=== PATIENT | male | born 1940 | race Caucasian/White ===

== ENCOUNTER 2022-10-01 15:37 | Inpatient (IN) | payer OTHER ==
[~2022-10-01] VITALS: Ht 177.8 cm; Wt 66.2 kg
[2022-10-01 15:43] VITALS: BP_SYST 135
[2022-10-01 16:44] LABS: BASOPHILS % (AUTO) 0.3 % (0.0-2.0); EOSINOPHILS # (AUTO) 0.1 K/uL (0.0-0.4); EOSINOPHILS % (AUTO) 1.2 % (0.0-4.0); HEMATOCRIT 34.3 % (36-54); HEMOGLOBIN 11.4 g/dL (14.0-18.0); LYMPHOCYTES # (AUTO) 1.4 K/uL (1.0-5.5); LYMPHOCYTES % (AUTO) 19.2 % (20.5-51.5); MEAN CORPUSCULAR HEMOGLOBIN 33 pg (27-31); MEAN CORPUSCULAR HGB CONC 33 % (32-36); MEAN CORPUSCULAR VOLUME 100 fL (79.0-98.0); MONOCYTES # (AUTO) 0.8 K/uL (0.0-1.0); MONOCYTES % (AUTO) 11.5 % (1.7-9.3); NEUTROPHILS # (AUTO) 4.8 K/uL (1.8-7.7); NEUTROPHILS % (AUTO) 67.8 % (40.0-70.0); PLATELET COUNT (AUTO) 165 K/uL (130-430); RED BLOOD CELL COUNT(AUTO) 3.43 MIL/uL (4.2-6.2)
[2022-10-01 17:07] LABS: ANION GAP 5 (5-15); CALCIUM 9.2 mg/dL (8.4-11.0); CHLORIDE 97 mmol/L (98-107); GLUCOSE 100 mg/dL (70-99); UREA NITROGEN, BLOOD 18 mg/dL (8-21)
[2022-10-01 17:12] LABS: ALANINE AMINOTRANSFERASE 25 U/L (12-78); ALBUMIN 3.1 g/dL (3.4-4.8); ASPARTATE AMINOTRANSFERASE 30 U/L (10-37); TOTAL BILIRUBIN 0.7 mg/dL (0.0-1.0)
[2022-10-01] MEDS ORDERED: HYDROcodone/ACETAMIN 5-325 MG TAB (NORCO/ VICODIN) PO ONE (17:15)
[2022-10-01 17:32] LABS: BILIRUBIN,URINE NEGATIVE (NEGATIVE); BLOOD, URINE 2+ (NEGATIVE); CLARITY/URINE CLEAR (CLEAR); COLOR,URINE YELLOW (YELLOW); GLUCOSE,URINE NEGATIVE (NEGATIVE); KETONES,URINE NEGATIVE (NEGATIVE); LEUKOCYTE ESTERASE ,URINE TRACE (NEGATIVE); NITRITE, URINE NEGATIVE (NEGATIVE); PH,URINE 6.5 (5.0-8.0); PROTEIN URINE NEGATIVE (NEGATIVE); UROBILINOGEN,URINE 0.2 (0.2-1.0)
[2022-10-01 17:44] LABS: BACTERIA,URINE None Seen /HPF (None Seen); MUCUS,URINE None Seen /LPF (None Seen); RBC,URINE 20-50 /HPF (0-3)
[2022-10-01 17:45] LABS: HYALINE CASTS, URINE 0-10 /LPF (None Seen)
[2022-10-01] MEDS ORDERED: NS 500 ML IV ONE (18:15)
[2022-10-01] MEDS ORDERED: BACITRACIN 1 GM OINT TP ONE (18:17)
[2022-10-01] MEDS ORDERED: SULF1TAB48 PO ×2 (18:23)
[2022-10-01] MEDS ORDERED: DOCU-144 PO ×2 (18:23)
[2022-10-01] MEDS ORDERED: POLY119P2 PO ×2 (18:23)
[2022-10-01] MEDS ORDERED: SULFAMETHOXAZOLE/TRIMETHOPR DS 1 TABLET PO ONE (18:30)
[2022-10-01] MEDS ORDERED: iohexoL 350 mgI/mL, 100 ML INFUS..BTL IV ONE (19:00)
[2022-10-01 20:24] LABS: INR 1.4 (0.80-1.20); PROTHROMBIN TIME 14.3 SECS (9.5-12.5)
[2022-10-01] MEDS: ENOXAPARIN SODIUM 60 MG/0.6 ML SYRINGE SUBCUT SCH (21:42)
[2022-10-01 22:30] VITALS: BP_SYST 126
[2022-10-01] MEDS ORDERED: NALOXONE HCL 0.4 MG/ML AMP (NARCAN) IVP PRN (23:45)
[2022-10-01] MEDS ORDERED: BISACODYL 5 MG TABLET.DR (DULCOLAX) PO ONE (23:45)
[2022-10-01 23:55] VITALS: BP_SYST 133
[2022-10-01] MEDS: HYDROcodone/ACETAMIN 10-325 MG TAB PO PRN (23:57)
[2022-10-02] MEDS ORDERED: HYDR-3917 PO (01:18)
[2022-10-02] MEDS ORDERED: ASPI-1457 PO (01:18)
[2022-10-02] MEDS ORDERED: ONDA-8 TL (01:18)
[2022-10-02] MEDS ORDERED: PRO40 PO (01:18)
[2022-10-02] MEDS ORDERED: PHE25 PO (01:18)
[2022-10-02] MEDS ORDERED: NADO40TA2 PO (01:18)
[2022-10-02 02:00] VITALS: BP_SYST 126
[2022-10-02 08:00] VITALS: BP_SYST 124
[2022-10-02] MEDS ORDERED: MUPIROCIN 2% TOPICAL OINTMENT 22 GM NS PRN (09:45)
[2022-10-02] MEDS ORDERED: POTASSIUM CHLORIDE 20 MEQ TAB.PRT.SR PO PRN (09:45)
[2022-10-02] MEDS ORDERED: DOCUSATE SODIUM 100 MG CAPSULE PO PRN (09:45)
[2022-10-02] MEDS ORDERED: ONDANSETRON HCL 4 MG/2 ML VIAL IVP PRN (09:45)
[2022-10-02] MEDS ORDERED: ZOLPIDEM TARTRATE 5 MG TABLET PO PRN (09:45)
[2022-10-02] MEDS ORDERED: LORazepam 2 MG/ML VIAL IVP PRN (09:45)
[2022-10-02] MEDS: ENOXAPARIN SODIUM 60 MG/0.6 ML SYRINGE SUBCUT SCH ×2 (09:51→22:09)
[2022-10-02] MEDS: HYDROcodone/ACETAMIN 10-325 MG TAB PO PRN ×2 (09:52→17:26)
[2022-10-02] MEDS ORDERED: PIPERACILLIN/TAZO 3.375/DEX-IS 50 ML IV ONE (10:15)
[2022-10-02] MEDS: PIPERACILLIN/TAZO 3.375/DEX-IS 50 ML IV SCH ×3 (11:41→23:59)
[2022-10-02 12:10] VITALS: BP_SYST 113
[2022-10-02 16:10] VITALS: BP_SYST 107
[2022-10-02] MEDS ORDERED: SODIUM PHOSPHATE,MONO-DIBASIC 133 ML ENEMA RC ONE (18:00)
[2022-10-02 20:00] VITALS: BP_SYST 114
[2022-10-02] MEDS: PANTOPRAZOLE SODIUM 40 MG TAB PO SCH (22:09)
[2022-10-03] VITALS (13 sets, daily range): BP systolic 72–129
[2022-10-03] MEDS: ACETAMINOPHEN 325 MG TABLET PO PRN (00:05)
[2022-10-03] MEDS: PIPERACILLIN/TAZO 3.375/DEX-IS 50 ML IV SCH ×3 (05:28→18:23)
[2022-10-03 08:00] LABS: ANION GAP 11 (5-15); CALCIUM 8.6 mg/dL (8.4-11.0); CHLORIDE 96 mmol/L (98-107); CREATININE 1.14 mg/dL (0.55-1.30); GLUCOSE 83 mg/dL (70-99); UREA NITROGEN, BLOOD 18 mg/dL (8-21)
[2022-10-03 08:11] LABS: HEMATOCRIT 31.7 % (36-54); HEMOGLOBIN 10.7 g/dL (14.0-18.0); MEAN CORPUSCULAR HEMOGLOBIN 34 pg (27-31); MEAN CORPUSCULAR HGB CONC 34 % (32-36); MEAN CORPUSCULAR VOLUME 100 fL (79.0-98.0); PLATELET COUNT (AUTO) 151 K/uL (130-430); RED BLOOD CELL COUNT(AUTO) 3.17 MIL/uL (4.2-6.2); RED CELL DISTRIBUTION WIDTH 18.4 % (9.0-15.0)
[2022-10-03 08:39] LABS: WHITE BLOOD COUNT (AUTO) 20.2 K/uL (4.8-10.8)
[2022-10-03] MEDS: ENOXAPARIN SODIUM 60 MG/0.6 ML SYRINGE SUBCUT SCH (08:54)
[2022-10-03] MEDS: PANTOPRAZOLE SODIUM 40 MG TAB PO SCH ×3 (08:54→22:09)
[2022-10-03] MEDS ORDERED: ASPIRIN 81 MG TABLET(ECOTRIN) PO SCH (09:00)
[2022-10-03] MEDS ORDERED: ERYEYE LEFT EYE (12:50)
[2022-10-03 13:13] LABS: ATYPICAL LYMPHOCYTES % 0 % (0-0); BAND % (MANUAL) 16 % (0-6); BASOPHILS % (MANUAL) 0 % (0-2); EOSINOPHILS % (MANUAL) 0 % (0-7); LYMPHOCYTES % (MANUAL) 5 % (20-46); MONOCYTES % (MANUAL) 6 % (0-11)
[2022-10-03] MEDS ORDERED: PROMETHAZINE HCL 25 MG TABLET PO PRN (13:15)
[2022-10-03 14:16] LABS: BASOPHILS % (AUTO) 0.1 % (0.0-2.0); HEMATOCRIT 25.8 % (36-54); HEMOGLOBIN 8.6 g/dL (14.0-18.0); LYMPHOCYTES # (AUTO) 1.2 K/uL (1.0-5.5); LYMPHOCYTES % (AUTO) 7.2 % (20.5-51.5); MEAN CORPUSCULAR HEMOGLOBIN 33 pg (27-31); MEAN CORPUSCULAR HGB CONC 33 % (32-36); MEAN CORPUSCULAR VOLUME 100 fL (79.0-98.0); MONOCYTES # (AUTO) 1.3 K/uL (0.0-1.0); MONOCYTES % (AUTO) 8.2 % (1.7-9.3); NEUTROPHILS # (AUTO) 13.8 K/uL (1.8-7.7); NEUTROPHILS % (AUTO) 84.5 % (40.0-70.0); PLATELET COUNT (AUTO) 125 K/uL (130-430); RED BLOOD CELL COUNT(AUTO) 2.59 MIL/uL (4.2-6.2); RED CELL DISTRIBUTION WIDTH 18.2 % (9.0-15.0); WHITE BLOOD COUNT (AUTO) 16.3 K/uL (4.8-10.8)
[2022-10-03] MEDS ORDERED: OCTREOTIDE ACETATE 500 MCG in NS 99.5 ML IV SCH (18:15)
[2022-10-03] MEDS: NACL 0.9% 1,000 ML IV SCH (18:23)
[2022-10-03] MEDS: ERYTHROMYCIN BASE 0.5% EYE OINT...G. LEFT EYE SCH ×3 (18:27→22:09)
[2022-10-03 18:49] LABS: INR 1.8 (0.80-1.20)
[2022-10-03] MEDS: IPRATROPIUM/ALBUTEROL SULFATE 3 ML AMPUL.NEB (DUONEB) INH PRN (21:12)
[2022-10-04] VITALS (24 sets, daily range): BP systolic 75–139
[2022-10-04] MEDS: PIPERACILLIN/TAZO 3.375/DEX-IS 50 ML IV SCH ×5 (00:31→23:39)
[2022-10-04] MEDS ORDERED: NOREPINEPHRINE 4 MG/4 ML VIAL IV ONE (00:41)
[2022-10-04] MEDS ORDERED: NOREPINEPHRINE BITARTRATE 4 MG in D5W 246 ML IV PRN (00:45)
[2022-10-04] MEDS ORDERED: NACL 0.9% 1,000 ML IV ONE (00:45)
[2022-10-04] MEDS: NACL 0.9% 1,000 ML IV SCH ×3 (05:41→20:16)
[2022-10-04 07:59] LABS: ANION GAP 10 (5-15); CALCIUM 8.1 mg/dL (8.4-11.0); CHLORIDE 102 mmol/L (98-107); CREATININE 0.96 mg/dL (0.55-1.30); GLUCOSE 117 mg/dL (70-99); UREA NITROGEN, BLOOD 22 mg/dL (8-21)
[2022-10-04] MEDS: PANTOPRAZOLE SODIUM 40 MG/VIAL (PROTONIX) IVP SCH ×2 (08:07→21:25)
[2022-10-04] MEDS: ERYTHROMYCIN BASE 0.5% EYE OINT...G. LEFT EYE SCH ×2 (08:08→21:25)
[2022-10-04 08:13] LABS: EOSINOPHILS % (AUTO) 0.1 % (0.0-4.0); HEMATOCRIT 26.1 % (36-54); HEMOGLOBIN 8.7 g/dL (14.0-18.0); LYMPHOCYTES % (AUTO) 8.1 % (20.5-51.5); MEAN CORPUSCULAR HEMOGLOBIN 32 pg (27-31); MEAN CORPUSCULAR HGB CONC 34 % (32-36); MEAN CORPUSCULAR VOLUME 97 fL (79.0-98.0); MONOCYTES # (AUTO) 1.3 K/uL (0.0-1.0); NEUTROPHILS # (AUTO) 10.4 K/uL (1.8-7.7); NEUTROPHILS % (AUTO) 81.8 % (40.0-70.0); PLATELET COUNT (AUTO) 120 K/uL (130-430); RED BLOOD CELL COUNT(AUTO) 2.69 MIL/uL (4.2-6.2); RED CELL DISTRIBUTION WIDTH 18.3 % (9.0-15.0); WHITE BLOOD COUNT (AUTO) 12.7 K/uL (4.8-10.8)
[2022-10-04] MEDS ORDERED: iohexoL 350 mgI/mL, 100 ML INFUS..BTL IV ONE (08:21)
[2022-10-04] MEDS ORDERED: OCTREOTIDE ACETATE 1,250 MCG in NS 243.75 ML IV SCH (13:00)
[2022-10-04] MEDS ORDERED: BISACODYL 5 MG TABLET.DR (DULCOLAX) PO ONE (17:00)
[2022-10-04 17:30] LABS: BASOPHILS # (AUTO) 0.1 K/uL (0.0-0.2); BASOPHILS % (AUTO) 0.3 % (0.0-2.0); HEMATOCRIT 26.6 % (36-54); HEMOGLOBIN 8.6 g/dL (14.0-18.0); LYMPHOCYTES # (AUTO) 1.1 K/uL (1.0-5.5); LYMPHOCYTES % (AUTO) 4.5 % (20.5-51.5); MEAN CORPUSCULAR HEMOGLOBIN 32 pg (27-31); MEAN CORPUSCULAR HGB CONC 33 % (32-36); MEAN CORPUSCULAR VOLUME 98 fL (79.0-98.0); MONOCYTES # (AUTO) 1.9 K/uL (0.0-1.0); MONOCYTES % (AUTO) 7.9 % (1.7-9.3); NEUTROPHILS % (AUTO) 87.3 % (40.0-70.0); PLATELET COUNT (AUTO) 137 K/uL (130-430); RED BLOOD CELL COUNT(AUTO) 2.71 MIL/uL (4.2-6.2); RED CELL DISTRIBUTION WIDTH 19.4 % (9.0-15.0); WHITE BLOOD COUNT (AUTO) 24.1 K/uL (4.8-10.8)
[2022-10-04] MEDS ORDERED: GOLYTELY / COLYTE SOLUTION 4 LITERS PO ONE (18:00)
[2022-10-04] MEDS: HEPARIN SODIUM,PORCINE 5,000 UNITS/ML VIAL SUBCUT SCH (21:28)
[2022-10-04] MEDS: HYDROcodone/ACETAMIN 5-325 MG TAB (NORCO/ VICODIN) PO PRN (23:40)
[2022-10-05] VITALS (18 sets, daily range): BP systolic 89–145
[2022-10-05] MEDS: PIPERACILLIN/TAZO 3.375/DEX-IS 50 ML IV SCH ×3 (05:50→18:42)
[2022-10-05 07:21] LABS: ANION GAP 14 (5-15); CALCIUM 7.5 mg/dL (8.4-11.0); CHLORIDE 107 mmol/L (98-107); CREATININE 0.92 mg/dL (0.55-1.30); GLUCOSE 109 mg/dL (70-99); UREA NITROGEN, BLOOD 24 mg/dL (8-21)
[2022-10-05 07:36] LABS: BASOPHILS % (AUTO) 0.2 % (0.0-2.0); EOSINOPHILS % (AUTO) 0.2 % (0.0-4.0); HEMATOCRIT 22.4 % (36-54); HEMOGLOBIN 7.4 g/dL (14.0-18.0); LYMPHOCYTES # (AUTO) 1.4 K/uL (1.0-5.5); LYMPHOCYTES % (AUTO) 9.3 % (20.5-51.5); MEAN CORPUSCULAR HEMOGLOBIN 33 pg (27-31); MEAN CORPUSCULAR HGB CONC 33 % (32-36); MEAN CORPUSCULAR VOLUME 98 fL (79.0-98.0); MONOCYTES # (AUTO) 1.6 K/uL (0.0-1.0); MONOCYTES % (AUTO) 10.8 % (1.7-9.3); PLATELET COUNT (AUTO) 150 K/uL (130-430); RED BLOOD CELL COUNT(AUTO) 2.28 MIL/uL (4.2-6.2); RED CELL DISTRIBUTION WIDTH 18.7 % (9.0-15.0); WHITE BLOOD COUNT (AUTO) 15.1 K/uL (4.8-10.8)
[2022-10-05 08:28] LABS: NEUTROPHILS % (AUTO) 79.5 % (40.0-70.0)
[2022-10-05] MEDS: ERYTHROMYCIN BASE 0.5% EYE OINT...G. LEFT EYE SCH ×2 (08:32→21:35)
[2022-10-05] MEDS: PANTOPRAZOLE SODIUM 40 MG/VIAL (PROTONIX) IVP SCH ×2 (08:33→21:35)
[2022-10-05] MEDS: NACL 0.9% 1,000 ML IV SCH ×2 (08:34→18:42)
[2022-10-05] MEDS: HEPARIN SODIUM,PORCINE 5,000 UNITS/ML VIAL SUBCUT SCH ×2 (09:00→21:00)
[2022-10-05] MEDS: HYDROcodone/ACETAMIN 5-325 MG TAB (NORCO/ VICODIN) PO PRN (12:10)
[2022-10-05] MEDS: MICAFUNGIN SODIUM 50 MG in NS 50 ML IV SCH (14:37)
[2022-10-05 16:12] LABS: BASOPHILS % (AUTO) 0.1 % (0.0-2.0); EOSINOPHILS # (AUTO) 0.1 K/uL (0.0-0.4); RED CELL DISTRIBUTION WIDTH 19.4 % (9.0-15.0)
[2022-10-05 16:21] LABS: EOSINOPHILS % (AUTO) 0.7 % (0.0-4.0); LYMPHOCYTES # (AUTO) 1.3 K/uL (1.0-5.5); LYMPHOCYTES % (AUTO) 9.4 % (20.5-51.5); MEAN CORPUSCULAR HEMOGLOBIN 32 pg (27-31); MEAN CORPUSCULAR HGB CONC 33 % (32-36); MEAN CORPUSCULAR VOLUME 98 fL (79.0-98.0); MONOCYTES # (AUTO) 1.3 K/uL (0.0-1.0); MONOCYTES % (AUTO) 9.4 % (1.7-9.3); NEUTROPHILS # (AUTO) 11.2 K/uL (1.8-7.7); NEUTROPHILS % (AUTO) 80.4 % (40.0-70.0); PLATELET COUNT (AUTO) 174 K/uL (130-430); RED BLOOD CELL COUNT(AUTO) 2.15 MIL/uL (4.2-6.2); WHITE BLOOD COUNT (AUTO) 13.9 K/uL (4.8-10.8)
[2022-10-05 16:33] LABS: HEMOGLOBIN 6.9 g/dL (14.0-18.0)
[2022-10-06] VITALS (24 sets, daily range): BP systolic 109–171
[2022-10-06] MEDS: PIPERACILLIN/TAZO 3.375/DEX-IS 50 ML IV SCH ×5 (01:01→23:56)
[2022-10-06] MEDS: NACL 0.9% 1,000 ML IV SCH (06:05)
[2022-10-06 06:49] LABS: INR 1.4 (0.80-1.20)
[2022-10-06 06:56] LABS: BASOPHILS % (AUTO) 0.1 % (0.0-2.0); EOSINOPHILS # (AUTO) 0.1 K/uL (0.0-0.4); HEMATOCRIT 31.3 % (36-54); HEMOGLOBIN 10.5 g/dL (14.0-18.0); LYMPHOCYTES % (AUTO) 7.9 % (20.5-51.5); MEAN CORPUSCULAR HEMOGLOBIN 32 pg (27-31); MEAN CORPUSCULAR HGB CONC 34 % (32-36); MEAN CORPUSCULAR VOLUME 96 fL (79.0-98.0); MONOCYTES # (AUTO) 1.2 K/uL (0.0-1.0); MONOCYTES % (AUTO) 9.6 % (1.7-9.3); NEUTROPHILS # (AUTO) 10.5 K/uL (1.8-7.7); NEUTROPHILS % (AUTO) 81.4 % (40.0-70.0); PLATELET COUNT (AUTO) 186 K/uL (130-430); RED BLOOD CELL COUNT(AUTO) 3.25 MIL/uL (4.2-6.2); RED CELL DISTRIBUTION WIDTH 16.3 % (9.0-15.0); WHITE BLOOD COUNT (AUTO) 12.9 K/uL (4.8-10.8)
[2022-10-06 07:15] LABS: ALANINE AMINOTRANSFERASE 22 U/L (12-78); ALBUMIN 2.1 g/dL (3.4-4.8); ANION GAP 8 (5-15); ASPARTATE AMINOTRANSFERASE 46 U/L (10-37); CALCIUM 8.3 mg/dL (8.4-11.0); CHLORIDE 109 mmol/L (98-107); CREATININE 0.83 mg/dL (0.55-1.30); GLUCOSE 92 mg/dL (70-99); UREA NITROGEN, BLOOD 22 mg/dL (8-21)
[2022-10-06] MEDS: PANTOPRAZOLE SODIUM 40 MG/VIAL (PROTONIX) IVP SCH ×2 (09:51→20:17)
[2022-10-06] MEDS: HEPARIN SODIUM,PORCINE 5,000 UNITS/ML VIAL SUBCUT SCH ×2 (09:51→20:19)
[2022-10-06] MEDS: ERYTHROMYCIN BASE 0.5% EYE OINT...G. LEFT EYE SCH ×2 (09:51→20:17)
[2022-10-06] MEDS ORDERED: KETOROLAC TROMETHAMINE 30 MG VIAL IVP PRN (11:15)
[2022-10-06] MEDS: D5NS 1,000 ML IV SCH ×2 (12:21→23:56)
[2022-10-06] MEDS: HYDROcodone/ACETAMIN 5-325 MG TAB (NORCO/ VICODIN) PO PRN ×2 (14:34→17:21)
[2022-10-06] MEDS: MICAFUNGIN SODIUM 50 MG in NS 50 ML IV SCH (15:16)
[2022-10-06 15:25] LABS: HEMATOCRIT 33.1 % (36-54); MEAN CORPUSCULAR HEMOGLOBIN 32 pg (27-31); MEAN CORPUSCULAR HGB CONC 33 % (32-36); MEAN CORPUSCULAR VOLUME 97 fL (79.0-98.0); PLATELET COUNT (AUTO) 214 K/uL (130-430); RED BLOOD CELL COUNT(AUTO) 3.43 MIL/uL (4.2-6.2); RED CELL DISTRIBUTION WIDTH 16.1 % (9.0-15.0); WHITE BLOOD COUNT (AUTO) 11.5 K/uL (4.8-10.8)
[2022-10-06 16:09] LABS: BAND % (MANUAL) 1 % (0-6); BASOPHILS % (MANUAL) 0 % (0-2); EOSINOPHILS % (MANUAL) 0 % (0-7); LYMPHOCYTES % (MANUAL) 9 % (20-46); MONOCYTES % (MANUAL) 8 % (0-11)
[2022-10-07] VITALS (23 sets, daily range): BP systolic 107–144
[2022-10-07] MEDS ORDERED: dilTIAZem HCL IVP 5 MG/ML VIAL IVP ONE (00:15)
[2022-10-07] MEDS ORDERED: dilTIAZem HCL IVP 5 MG/ML VIAL ONE (00:18)
[2022-10-07 06:43] LABS: ANION GAP 10 (5-15); CALCIUM 7.8 mg/dL (8.4-11.0); CHLORIDE 111 mmol/L (98-107); CREATININE 0.75 mg/dL (0.55-1.30); GLUCOSE 172 mg/dL (70-99); UREA NITROGEN, BLOOD 20 mg/dL (8-21)
[2022-10-07] MEDS: PIPERACILLIN/TAZO 3.375/DEX-IS 50 ML IV SCH ×3 (06:50→23:58)
[2022-10-07 07:42] LABS: BASOPHILS % (AUTO) 0.1 % (0.0-2.0); EOSINOPHILS # (AUTO) 0.1 K/uL (0.0-0.4); EOSINOPHILS % (AUTO) 0.5 % (0.0-4.0); HEMATOCRIT 33.4 % (36-54); HEMOGLOBIN 11.4 g/dL (14.0-18.0); LYMPHOCYTES # (AUTO) 0.9 K/uL (1.0-5.5); LYMPHOCYTES % (AUTO) 7.3 % (20.5-51.5); MEAN CORPUSCULAR HEMOGLOBIN 33 pg (27-31); MEAN CORPUSCULAR HGB CONC 34 % (32-36); MEAN CORPUSCULAR VOLUME 96 fL (79.0-98.0); MONOCYTES # (AUTO) 1.3 K/uL (0.0-1.0); MONOCYTES % (AUTO) 11.1 % (1.7-9.3); NEUTROPHILS # (AUTO) 9.5 K/uL (1.8-7.7); PLATELET COUNT (AUTO) 298 K/uL (130-430); RED BLOOD CELL COUNT(AUTO) 3.46 MIL/uL (4.2-6.2); RED CELL DISTRIBUTION WIDTH 16.3 % (9.0-15.0); WHITE BLOOD COUNT (AUTO) 11.7 K/uL (4.8-10.8)
[2022-10-07] MEDS: PANTOPRAZOLE SODIUM 40 MG/VIAL (PROTONIX) IVP SCH ×2 (09:00→21:50)
[2022-10-07] MEDS: HEPARIN SODIUM,PORCINE 5,000 UNITS/ML VIAL SUBCUT SCH (09:00)
[2022-10-07] MEDS: ERYTHROMYCIN BASE 0.5% EYE OINT...G. LEFT EYE SCH ×2 (09:00→21:51)
[2022-10-07] MEDS: D5NS 1,000 ML IV SCH ×2 (12:02→22:32)
[2022-10-07] MEDS: MICAFUNGIN SODIUM 50 MG in NS 50 ML IV SCH (13:00)
[2022-10-07] MEDS ORDERED: *HEPARIN PER PHARMACY XX ONE (17:45)
[2022-10-07] MEDS ORDERED: HEPARIN SODIUM,PORCINE 3000 UNITS/0.6 ML BOLUS IVP PRN (18:30)
[2022-10-07] MEDS ORDERED: HEPARIN SODIUM,PORCINE 2000 UNITS/0.4 ML BOLUS IVP PRN (18:30)
[2022-10-07] MEDS: IPRATROPIUM/ALBUTEROL SULFATE 3 ML AMPUL.NEB (DUONEB) INH PRN (19:08)
[2022-10-07] MEDS: HEPARIN 25,000 UNITS in 250 ML PREMIX IV PRN (19:51)
[2022-10-08] VITALS (24 sets, daily range): BP systolic 100–133
[2022-10-08] MEDS: IPRATROPIUM/ALBUTEROL SULFATE 3 ML AMPUL.NEB (DUONEB) INH PRN ×3 (02:05→19:15)
[2022-10-08 03:24] LABS: INR 1.7 (0.80-1.20); PROTHROMBIN TIME 17.5 SECS (9.5-12.5)
[2022-10-08] MEDS: D5NS 1,000 ML IV SCH ×3 (04:19→22:05)
[2022-10-08] MEDS: PIPERACILLIN/TAZO 3.375/DEX-IS 50 ML IV SCH ×4 (05:44→23:19)
[2022-10-08 06:44] LABS: BASOPHILS % (AUTO) 0.1 % (0.0-2.0); EOSINOPHILS % (AUTO) 0.1 % (0.0-4.0); HEMATOCRIT 34.1 % (36-54); HEMOGLOBIN 11.4 g/dL (14.0-18.0); LYMPHOCYTES # (AUTO) 0.9 K/uL (1.0-5.5); MEAN CORPUSCULAR HEMOGLOBIN 32 pg (27-31); MEAN CORPUSCULAR HGB CONC 33 % (32-36); MEAN CORPUSCULAR VOLUME 96 fL (79.0-98.0); MONOCYTES % (AUTO) 12.8 % (1.7-9.3); NEUTROPHILS # (AUTO) 12.5 K/uL (1.8-7.7); PLATELET COUNT (AUTO) 356 K/uL (130-430); RED BLOOD CELL COUNT(AUTO) 3.55 MIL/uL (4.2-6.2); RED CELL DISTRIBUTION WIDTH 16.3 % (9.0-15.0); WHITE BLOOD COUNT (AUTO) 15.4 K/uL (4.8-10.8)
[2022-10-08] MEDS: PANTOPRAZOLE SODIUM 40 MG/VIAL (PROTONIX) IVP SCH ×2 (08:34→20:21)
[2022-10-08] MEDS: ERYTHROMYCIN BASE 0.5% EYE OINT...G. LEFT EYE SCH ×2 (08:44→20:20)
[2022-10-08] MEDS: BALSAM PERU/CASTOR OIL 56.7 GM OINT...G. TP SCH (08:45)
[2022-10-08] MEDS: METOPROLOL TARTRATE 25 MG TABLET PO SCH ×2 (09:00→20:19)
[2022-10-08] MEDS ORDERED: INSULIN REGULAR, HUMAN 100 UNITS/ML, 3 ML VIAL (humuLIN R) SUBCUT PRN (12:00)
[2022-10-08] MEDS ORDERED: *TPN PER PHARMACY XX PRN (12:00)
[2022-10-08] MEDS ORDERED: DEXTROSE 50% JECT 50 ML DISP.SYRIN IVP PRN (12:00)
[2022-10-08] MEDS: MICAFUNGIN SODIUM 50 MG in NS 50 ML IV SCH (14:16)
[2022-10-08] MEDS: HEPARIN 25,000 UNITS in 250 ML PREMIX IV PRN (22:01)
[2022-10-09] VITALS (25 sets, daily range): BP systolic 99–171
[2022-10-09] MEDS: PIPERACILLIN/TAZO 3.375/DEX-IS 50 ML IV SCH ×4 (05:27→23:28)
[2022-10-09 06:44] LABS: BASOPHILS % (AUTO) 0.1 % (0.0-2.0); EOSINOPHILS % (AUTO) 0.3 % (0.0-4.0); HEMATOCRIT 34.1 % (36-54); HEMOGLOBIN 11.4 g/dL (14.0-18.0); LYMPHOCYTES # (AUTO) 1.1 K/uL (1.0-5.5); LYMPHOCYTES % (AUTO) 8.2 % (20.5-51.5); MEAN CORPUSCULAR HEMOGLOBIN 32 pg (27-31); MEAN CORPUSCULAR HGB CONC 33 % (32-36); MEAN CORPUSCULAR VOLUME 97 fL (79.0-98.0); MONOCYTES # (AUTO) 1.7 K/uL (0.0-1.0); MONOCYTES % (AUTO) 12.5 % (1.7-9.3); NEUTROPHILS % (AUTO) 78.9 % (40.0-70.0); PLATELET COUNT (AUTO) 436 K/uL (130-430); RED BLOOD CELL COUNT(AUTO) 3.52 MIL/uL (4.2-6.2); RED CELL DISTRIBUTION WIDTH 16.9 % (9.0-15.0); WHITE BLOOD COUNT (AUTO) 13.9 K/uL (4.8-10.8)
[2022-10-09 07:40] LABS: ALANINE AMINOTRANSFERASE 33 U/L (12-78); ALBUMIN 1.8 g/dL (3.4-4.8); ANION GAP 9 (5-15); ASPARTATE AMINOTRANSFERASE 65 U/L (10-37); CALCIUM 8.2 mg/dL (8.4-11.0); CHLORIDE 110 mmol/L (98-107); CREATININE 0.66 mg/dL (0.55-1.30); GLUCOSE 120 mg/dL (70-99); UREA NITROGEN, BLOOD 9 mg/dL (8-21)
[2022-10-09] MEDS: PANTOPRAZOLE SODIUM 40 MG/VIAL (PROTONIX) IVP SCH ×2 (08:59→20:18)
[2022-10-09] MEDS: ERYTHROMYCIN BASE 0.5% EYE OINT...G. LEFT EYE SCH ×2 (09:01→20:19)
[2022-10-09] MEDS: METOPROLOL TARTRATE 25 MG TABLET PO SCH ×2 (09:02→20:18)
[2022-10-09] MEDS: BALSAM PERU/CASTOR OIL 56.7 GM OINT...G. TP SCH (09:02)
[2022-10-09] MEDS: D5NS 1,000 ML IV SCH ×2 (09:03→19:15)
[2022-10-09] MEDS ORDERED: KCL 40 mEq in 100 mL (PREMIX) 100 ML IV ONE (09:30)
[2022-10-09 09:55] LABS: TRIGLYCERIDES 83 mg/dL (30-150)
[2022-10-09] MEDS: MICAFUNGIN SODIUM 50 MG in NS 50 ML IV SCH (13:27)
[2022-10-09] MEDS: IPRATROPIUM/ALBUTEROL SULFATE 3 ML AMPUL.NEB (DUONEB) INH PRN (17:41)
[2022-10-09] MEDS ORDERED: POTASSIUM CHLORIDE IV SCH ×16 (21:00)
[2022-10-09] MEDS ORDERED: [UNRECOGNIZED DRUG - OTHER] IV SCH ×16 (21:00)
[2022-10-09] MEDS ORDERED: K PHOS IV SCH ×16 (21:00)
[2022-10-09] MEDS ORDERED: TPN CENTRAL IV SCH ×16 (21:00)
[2022-10-09] MEDS: FAT EMULSIONS 250 ML IV SCH (21:31)
[2022-10-10] VITALS (23 sets, daily range): BP systolic 106–140
[2022-10-10] MEDS: PIPERACILLIN/TAZO 3.375/DEX-IS 50 ML IV SCH ×4 (05:17→23:38)
[2022-10-10] MEDS: D5NS 1,000 ML IV SCH (05:45)
[2022-10-10] MEDS: HEPARIN 25,000 UNITS in 250 ML PREMIX IV PRN (07:50)
[2022-10-10 07:52] LABS: ALANINE AMINOTRANSFERASE 49 U/L (12-78); ALBUMIN 1.9 g/dL (3.4-4.8); ANION GAP 6 (5-15); ASPARTATE AMINOTRANSFERASE 78 U/L (10-37); CALCIUM 8.1 mg/dL (8.4-11.0); CHLORIDE 111 mmol/L (98-107); CREATININE 0.58 mg/dL (0.55-1.30); GLUCOSE 171 mg/dL (70-99); PHOSPHORUS 1.9 mg/dL (2.7-4.5); TOTAL BILIRUBIN 2.8 mg/dL (0.0-1.0); UREA NITROGEN, BLOOD 8 mg/dL (8-21)
[2022-10-10] MEDS: METOPROLOL TARTRATE 25 MG TABLET PO SCH ×2 (09:00→20:51)
[2022-10-10] MEDS: PANTOPRAZOLE SODIUM 40 MG/VIAL (PROTONIX) IVP SCH ×2 (09:00→20:50)
[2022-10-10] MEDS: BALSAM PERU/CASTOR OIL 56.7 GM OINT...G. TP SCH (09:00)
[2022-10-10] MEDS: ERYTHROMYCIN BASE 0.5% EYE OINT...G. LEFT EYE SCH ×2 (09:00→20:50)
[2022-10-10] MEDS: IPRATROPIUM/ALBUTEROL SULFATE 3 ML AMPUL.NEB (DUONEB) INH PRN ×2 (10:08→19:00)
[2022-10-10] MEDS ORDERED: FUROSEMIDE 20 MG/2 ML VIAL IVP ONE (11:00)
[2022-10-10] MEDS: MICAFUNGIN SODIUM 50 MG in NS 50 ML IV SCH (13:20)
[2022-10-10] MEDS ORDERED: KCL 40 mEq in 100 mL (PREMIX) 100 ML IV ONE (14:30)
[2022-10-10] MEDS: FUROSEMIDE 20 MG/2 ML VIAL IVP SCH (20:50)
[2022-10-10] MEDS ORDERED: K PHOS IV SCH ×8 (21:00)
[2022-10-10] MEDS ORDERED: POTASSIUM ACETATE IV SCH ×8 (21:00)
[2022-10-10] MEDS ORDERED: [UNRECOGNIZED DRUG - OTHER] IV SCH ×8 (21:00)
[2022-10-10] MEDS ORDERED: TPN CENTRAL IV SCH ×8 (21:00)
[2022-10-10] MEDS: FAT EMULSIONS 250 ML IV SCH (21:58)
[2022-10-11] VITALS (26 sets, daily range): BP systolic 85–138
[2022-10-11] MEDS: D5NS 1,000 ML IV SCH (06:26)
[2022-10-11] MEDS: PIPERACILLIN/TAZO 3.375/DEX-IS 50 ML IV SCH ×3 (06:28→17:23)
[2022-10-11 07:44] LABS: BASOPHILS % (AUTO) 0.1 % (0.0-2.0); EOSINOPHILS # (AUTO) 0.1 K/uL (0.0-0.4); EOSINOPHILS % (AUTO) 0.5 % (0.0-4.0); HEMATOCRIT 35.4 % (36-54); HEMOGLOBIN 11.8 g/dL (14.0-18.0); LYMPHOCYTES # (AUTO) 0.8 K/uL (1.0-5.5); LYMPHOCYTES % (AUTO) 6.3 % (20.5-51.5); MEAN CORPUSCULAR HEMOGLOBIN 32 pg (27-31); MEAN CORPUSCULAR HGB CONC 34 % (32-36); MEAN CORPUSCULAR VOLUME 97 fL (79.0-98.0); MONOCYTES # (AUTO) 1.6 K/uL (0.0-1.0); MONOCYTES % (AUTO) 12.8 % (1.7-9.3); NEUTROPHILS # (AUTO) 9.8 K/uL (1.8-7.7); NEUTROPHILS % (AUTO) 80.3 % (40.0-70.0); PLATELET COUNT (AUTO) 473 K/uL (130-430); RED BLOOD CELL COUNT(AUTO) 3.65 MIL/uL (4.2-6.2); RED CELL DISTRIBUTION WIDTH 17.8 % (9.0-15.0); WHITE BLOOD COUNT (AUTO) 12.2 K/uL (4.8-10.8)
[2022-10-11 08:07] LABS: ALANINE AMINOTRANSFERASE 33 U/L (12-78); ALBUMIN 1.7 g/dL (3.4-4.8); ANION GAP 8 (5-15); ASPARTATE AMINOTRANSFERASE 51 U/L (10-37); CALCIUM 7.5 mg/dL (8.4-11.0); CHLORIDE 104 mmol/L (98-107); CREATININE 0.68 mg/dL (0.55-1.30); GLUCOSE 153 mg/dL (70-99); PHOSPHORUS 1.6 mg/dL (2.7-4.5); TOTAL BILIRUBIN 1.8 mg/dL (0.0-1.0); UREA NITROGEN, BLOOD 11 mg/dL (8-21)
[2022-10-11] MEDS: PANTOPRAZOLE SODIUM 40 MG/VIAL (PROTONIX) IVP SCH ×2 (08:40→22:31)
[2022-10-11] MEDS: METOPROLOL TARTRATE 25 MG TABLET PO SCH ×3 (08:41→21:00)
[2022-10-11] MEDS: BALSAM PERU/CASTOR OIL 56.7 GM OINT...G. TP SCH (08:41)
[2022-10-11] MEDS: FUROSEMIDE 20 MG/2 ML VIAL IVP SCH ×2 (08:41→20:44)
[2022-10-11] MEDS: ERYTHROMYCIN BASE 0.5% EYE OINT...G. LEFT EYE SCH ×2 (08:42→22:32)
[2022-10-11] MEDS: MAGNESIUM SULFATE 50 ML IV PRN (12:15)
[2022-10-11] MEDS ORDERED: KCL 20 mEq in 100 mL (PREMIX) 100 ML IV ONE (13:00)
[2022-10-11] MEDS: MICAFUNGIN SODIUM 50 MG in NS 50 ML IV SCH (14:19)
[2022-10-11] MEDS: HEPARIN 25,000 UNITS in 250 ML PREMIX IV PRN (18:53)
[2022-10-11] MEDS: IPRATROPIUM/ALBUTEROL SULFATE 3 ML AMPUL.NEB (DUONEB) INH PRN (20:41)
[2022-10-11] MEDS: FAT EMULSIONS 250 ML IV SCH (20:58)
[2022-10-11] MEDS ORDERED: [UNRECOGNIZED DRUG - OTHER] IV SCH ×9 (21:00)
[2022-10-11] MEDS ORDERED: K PHOS IV SCH ×9 (21:00)
[2022-10-11] MEDS ORDERED: TPN CENTRAL IV SCH ×9 (21:00)
[2022-10-11] MEDS ORDERED: POTASSIUM CHLORIDE IV SCH ×9 (21:00)
[2022-10-12] VITALS (13 sets, daily range): BP systolic 100–137
[2022-10-12] MEDS: PIPERACILLIN/TAZO 3.375/DEX-IS 50 ML IV SCH ×2 (00:22→06:38)
[2022-10-12 07:21] LABS: BASOPHILS % (AUTO) 0.2 % (0.0-2.0); EOSINOPHILS # (AUTO) 0.1 K/uL (0.0-0.4); EOSINOPHILS % (AUTO) 0.6 % (0.0-4.0); HEMATOCRIT 35.8 % (36-54); LYMPHOCYTES # (AUTO) 1.1 K/uL (1.0-5.5); LYMPHOCYTES % (AUTO) 9.1 % (20.5-51.5); MEAN CORPUSCULAR HEMOGLOBIN 33 pg (27-31); MEAN CORPUSCULAR HGB CONC 34 % (32-36); MEAN CORPUSCULAR VOLUME 98 fL (79.0-98.0); MONOCYTES # (AUTO) 1.7 K/uL (0.0-1.0); MONOCYTES % (AUTO) 14.3 % (1.7-9.3); NEUTROPHILS # (AUTO) 9.1 K/uL (1.8-7.7); NEUTROPHILS % (AUTO) 75.8 % (40.0-70.0); PLATELET COUNT (AUTO) 495 K/uL (130-430); RED BLOOD CELL COUNT(AUTO) 3.66 MIL/uL (4.2-6.2); RED CELL DISTRIBUTION WIDTH 18.2 % (9.0-15.0)
[2022-10-12] MEDS: IPRATROPIUM/ALBUTEROL SULFATE 3 ML AMPUL.NEB (DUONEB) INH PRN (07:51)
[2022-10-12] MEDS: PANTOPRAZOLE SODIUM 40 MG/VIAL (PROTONIX) IVP SCH ×2 (08:51→20:46)
[2022-10-12] MEDS: ERYTHROMYCIN BASE 0.5% EYE OINT...G. LEFT EYE SCH ×2 (08:52→21:15)
[2022-10-12] MEDS: BALSAM PERU/CASTOR OIL 56.7 GM OINT...G. TP SCH (08:52)
[2022-10-12] MEDS: METOPROLOL TARTRATE 25 MG TABLET PO SCH ×2 (08:53→20:46)
[2022-10-12] MEDS: FLUCONAZOLE 200 mg/ NS 100 ML IV SCH (11:49)
[2022-10-12 12:02] LABS: ALANINE AMINOTRANSFERASE 41 U/L (12-78); ALBUMIN 1.9 g/dL (3.4-4.8); ANION GAP 3 (5-15); ASPARTATE AMINOTRANSFERASE 73 U/L (10-37); CALCIUM 8.1 mg/dL (8.4-11.0); CHLORIDE 98 mmol/L (98-107); CREATININE 0.72 mg/dL (0.55-1.30); GLUCOSE 133 mg/dL (70-99); PHOSPHORUS 2.6 mg/dL (2.7-4.5); TOTAL BILIRUBIN 2.4 mg/dL (0.0-1.0); UREA NITROGEN, BLOOD 16 mg/dL (8-21)
[2022-10-12] MEDS: CEFEPIME 2 GM in D5W 100 ML IV SCH ×2 (13:32→23:48)
[2022-10-12] MEDS ORDERED: K PHOS IV SCH ×8 (21:00)
[2022-10-12] MEDS ORDERED: POTASSIUM CHLORIDE IV SCH ×8 (21:00)
[2022-10-12] MEDS ORDERED: [UNRECOGNIZED DRUG - OTHER] IV SCH ×8 (21:00)
[2022-10-12] MEDS ORDERED: TPN CENTRAL IV SCH ×8 (21:00)
[2022-10-12] MEDS: HEPARIN 25,000 UNITS in 250 ML PREMIX IV PRN (21:54)
[2022-10-12] MEDS: FAT EMULSIONS 250 ML IV SCH (22:44)
[2022-10-13] VITALS: BP_SYST 123
[2022-10-13 04:00] VITALS: BP_SYST 130
[2022-10-13 07:36] LABS: BASOPHILS # (AUTO) 0.1 K/uL (0.0-0.2); BASOPHILS % (AUTO) 0.4 % (0.0-2.0); EOSINOPHILS # (AUTO) 0.2 K/uL (0.0-0.4); EOSINOPHILS % (AUTO) 1.1 % (0.0-4.0); HEMATOCRIT 34.9 % (36-54); HEMOGLOBIN 11.7 g/dL (14.0-18.0); LYMPHOCYTES # (AUTO) 1.4 K/uL (1.0-5.5); LYMPHOCYTES % (AUTO) 9.6 % (20.5-51.5); MEAN CORPUSCULAR HEMOGLOBIN 33 pg (27-31); MEAN CORPUSCULAR HGB CONC 33 % (32-36); MEAN CORPUSCULAR VOLUME 98 fL (79.0-98.0); MONOCYTES # (AUTO) 2.3 K/uL (0.0-1.0); MONOCYTES % (AUTO) 15.5 % (1.7-9.3); NEUTROPHILS # (AUTO) 10.9 K/uL (1.8-7.7); NEUTROPHILS % (AUTO) 73.4 % (40.0-70.0); PLATELET COUNT (AUTO) 496 K/uL (130-430); RED BLOOD CELL COUNT(AUTO) 3.55 MIL/uL (4.2-6.2); RED CELL DISTRIBUTION WIDTH 18.6 % (9.0-15.0); WHITE BLOOD COUNT (AUTO) 14.9 K/uL (4.8-10.8)
[2022-10-13 07:53] LABS: ANION GAP 7 (5-15); CALCIUM 8.2 mg/dL (8.4-11.0); CHLORIDE 97 mmol/L (98-107); CREATININE 0.71 mg/dL (0.55-1.30); GLUCOSE 118 mg/dL (70-99); PHOSPHORUS 2.9 mg/dL (2.7-4.5); TRIGLYCERIDES 85 mg/dL (30-150); UREA NITROGEN, BLOOD 22 mg/dL (8-21)
[2022-10-13] MEDS: PANTOPRAZOLE SODIUM 40 MG/VIAL (PROTONIX) IVP SCH ×2 (09:54→20:25)
[2022-10-13] MEDS: METOPROLOL TARTRATE 25 MG TABLET PO SCH ×2 (09:55→20:25)
[2022-10-13] MEDS: BALSAM PERU/CASTOR OIL 56.7 GM OINT...G. TP SCH (11:10)
[2022-10-13] MEDS: ERYTHROMYCIN BASE 0.5% EYE OINT...G. LEFT EYE SCH ×2 (11:11→20:25)
[2022-10-13] MEDS: FLUCONAZOLE 200 mg/ NS 100 ML IV SCH (11:15)
[2022-10-13 11:18] VITALS: BP_SYST 125
[2022-10-13 11:47] VITALS: BP_SYST 125
[2022-10-13] MEDS: CEFEPIME 2 GM in D5W 100 ML IV SCH ×2 (13:20→23:48)
[2022-10-13 16:00] VITALS: BP_SYST 128
[2022-10-13] MEDS: IPRATROPIUM/ALBUTEROL SULFATE 3 ML AMPUL.NEB (DUONEB) INH PRN (19:14)
[2022-10-13 20:00] VITALS: BP_SYST 130
[2022-10-13] MEDS ORDERED: POTASSIUM CHLORIDE IV SCH ×9 (21:00)
[2022-10-13] MEDS ORDERED: SODIUM CHLORIDE IV SCH ×9 (21:00)
[2022-10-13] MEDS ORDERED: [UNRECOGNIZED DRUG - OTHER] IV SCH ×9 (21:00)
[2022-10-13] MEDS ORDERED: TPN CENTRAL IV SCH ×9 (21:00)
[2022-10-13] MEDS: FAT EMULSIONS 250 ML IV SCH (21:42)
[2022-10-13] MEDS: HEPARIN 25,000 UNITS in 250 ML PREMIX IV PRN (23:47)
[2022-10-14 01:37] VITALS: BP_SYST 138
[2022-10-14 08:14] LABS: BASOPHILS % (AUTO) 0.3 % (0.0-2.0); EOSINOPHILS # (AUTO) 0.1 K/uL (0.0-0.4); EOSINOPHILS % (AUTO) 0.9 % (0.0-4.0); HEMATOCRIT 34.7 % (36-54); HEMOGLOBIN 11.5 g/dL (14.0-18.0); LYMPHOCYTES # (AUTO) 1.1 K/uL (1.0-5.5); LYMPHOCYTES % (AUTO) 7.1 % (20.5-51.5); MEAN CORPUSCULAR HEMOGLOBIN 33 pg (27-31); MEAN CORPUSCULAR HGB CONC 33 % (32-36); MEAN CORPUSCULAR VOLUME 98 fL (79.0-98.0); MONOCYTES # (AUTO) 1.8 K/uL (0.0-1.0); NEUTROPHILS # (AUTO) 12.2 K/uL (1.8-7.7); NEUTROPHILS % (AUTO) 79.7 % (40.0-70.0); PLATELET COUNT (AUTO) 397 K/uL (130-430); RED BLOOD CELL COUNT(AUTO) 3.54 MIL/uL (4.2-6.2); RED CELL DISTRIBUTION WIDTH 18.9 % (9.0-15.0); WHITE BLOOD COUNT (AUTO) 15.3 K/uL (4.8-10.8)
[2022-10-14 08:37] LABS: ANION GAP 4 (5-15); CALCIUM 9.2 mg/dL (8.4-11.0); CHLORIDE 96 mmol/L (98-107); CREATININE 0.52 mg/dL (0.55-1.30); GLUCOSE 127 mg/dL (70-99); PHOSPHORUS 3.6 mg/dL (2.7-4.5); UREA NITROGEN, BLOOD 25 mg/dL (8-21)
[2022-10-14] MEDS: PANTOPRAZOLE SODIUM 40 MG/VIAL (PROTONIX) IVP SCH ×2 (10:27→21:48)
[2022-10-14] MEDS: METOPROLOL TARTRATE 25 MG TABLET PO SCH ×2 (10:29→21:49)
[2022-10-14] MEDS: BALSAM PERU/CASTOR OIL 56.7 GM OINT...G. TP SCH (10:30)
[2022-10-14] MEDS: ERYTHROMYCIN BASE 0.5% EYE OINT...G. LEFT EYE SCH ×2 (10:30→21:50)
[2022-10-14] MEDS: FLUCONAZOLE 200 mg/ NS 100 ML IV SCH (11:34)
[2022-10-14] MEDS: CEFEPIME 2 GM in D5W 100 ML IV SCH (11:37)
[2022-10-14 11:45] VITALS: BP_SYST 131
[2022-10-14 15:23] VITALS: BP_SYST 109
[2022-10-14] MEDS: HEPARIN 25,000 UNITS in 250 ML PREMIX IV PRN (18:30)
[2022-10-14 20:00] VITALS: BP_SYST 127
[2022-10-14] MEDS ORDERED: TPN CENTRAL IV SCH ×9 (21:00)
[2022-10-14] MEDS ORDERED: [UNRECOGNIZED DRUG - OTHER] IV SCH ×9 (21:00)
[2022-10-14] MEDS ORDERED: SODIUM CHLORIDE IV SCH ×9 (21:00)
[2022-10-14] MEDS ORDERED: POTASSIUM CHLORIDE IV SCH ×9 (21:00)
[2022-10-14] MEDS: FAT EMULSIONS 250 ML IV SCH (21:38)
[2022-10-15 00:43] VITALS: BP_SYST 140
[2022-10-15] MEDS: CEFEPIME 2 GM in D5W 100 ML IV SCH ×2 (01:17→12:18)
[2022-10-15] MEDS: HEPARIN 25,000 UNITS in 250 ML PREMIX IV PRN (02:57)
[2022-10-15 07:06] LABS: BASOPHILS # (AUTO) 0.1 K/uL (0.0-0.2); BASOPHILS % (AUTO) 0.4 % (0.0-2.0); EOSINOPHILS # (AUTO) 0.1 K/uL (0.0-0.4); EOSINOPHILS % (AUTO) 0.6 % (0.0-4.0); HEMATOCRIT 33.5 % (36-54); LYMPHOCYTES # (AUTO) 1.3 K/uL (1.0-5.5); LYMPHOCYTES % (AUTO) 8.1 % (20.5-51.5); MEAN CORPUSCULAR HEMOGLOBIN 32 pg (27-31); MEAN CORPUSCULAR HGB CONC 33 % (32-36); MEAN CORPUSCULAR VOLUME 98 fL (79.0-98.0); MONOCYTES # (AUTO) 1.9 K/uL (0.0-1.0); MONOCYTES % (AUTO) 12.3 % (1.7-9.3); NEUTROPHILS # (AUTO) 12.3 K/uL (1.8-7.7); PLATELET COUNT (AUTO) 404 K/uL (130-430); RED BLOOD CELL COUNT(AUTO) 3.43 MIL/uL (4.2-6.2); RED CELL DISTRIBUTION WIDTH 18.6 % (9.0-15.0); WHITE BLOOD COUNT (AUTO) 15.6 K/uL (4.8-10.8)
[2022-10-15 07:21] LABS: ANION GAP 5 (5-15); CALCIUM 8.7 mg/dL (8.4-11.0); CHLORIDE 97 mmol/L (98-107); CREATININE 0.58 mg/dL (0.55-1.30); GLUCOSE 117 mg/dL (70-99); PHOSPHORUS 3.4 mg/dL (2.7-4.5); UREA NITROGEN, BLOOD 25 mg/dL (8-21)
[2022-10-15 08:00] VITALS: BP_SYST 136
[2022-10-15] MEDS: IPRATROPIUM/ALBUTEROL SULFATE 3 ML AMPUL.NEB (DUONEB) INH PRN ×2 (08:20→18:11)
[2022-10-15] MEDS ORDERED: LEVO-62 PO (08:35)
[2022-10-15] MEDS ORDERED: APIX5TAB4 PO (08:35)
[2022-10-15 09:47] VITALS: BP_SYST 142
[2022-10-15] MEDS: PANTOPRAZOLE SODIUM 40 MG/VIAL (PROTONIX) IVP SCH ×2 (09:50→22:37)
[2022-10-15] MEDS: METOPROLOL TARTRATE 25 MG TABLET PO SCH ×2 (09:51→22:37)
[2022-10-15] MEDS: BALSAM PERU/CASTOR OIL 56.7 GM OINT...G. TP SCH (09:52)
[2022-10-15] MEDS: ERYTHROMYCIN BASE 0.5% EYE OINT...G. LEFT EYE SCH ×2 (09:52→22:59)
[2022-10-15 11:25] VITALS: BP_SYST 126
[2022-10-15] MEDS: FLUCONAZOLE 200 mg/ NS 100 ML IV SCH (12:18)
[2022-10-15 14:27] LABS: NEUTROPHILS % (AUTO) 78.6 % (40.0-70.0)
[2022-10-15 15:27] VITALS: BP_SYST 130
[2022-10-15 20:39] VITALS: BP_SYST 134
[2022-10-15] MEDS ORDERED: POTASSIUM CHLORIDE IV SCH ×9 (21:00)
[2022-10-15] MEDS ORDERED: SODIUM CHLORIDE IV SCH ×9 (21:00)
[2022-10-15] MEDS ORDERED: TPN CENTRAL IV SCH ×9 (21:00)
[2022-10-15] MEDS ORDERED: [UNRECOGNIZED DRUG - OTHER] IV SCH ×9 (21:00)
[2022-10-16] MEDS ORDERED: *TPN PER PHARMACY XX PRN (00:15)
[2022-10-16] MEDS: CEFEPIME 2 GM in D5W 100 ML IV SCH ×2 (00:33→11:51)
[2022-10-16 01:17] VITALS: BP_SYST 113
[2022-10-16] MEDS: FAT EMULSIONS 250 ML IV SCH (06:36)
[2022-10-16] MEDS: ERYTHROMYCIN BASE 0.5% EYE OINT...G. LEFT EYE SCH (08:52)
[2022-10-16] MEDS: PANTOPRAZOLE SODIUM 40 MG/VIAL (PROTONIX) IVP SCH (08:52)
[2022-10-16] MEDS: METOPROLOL TARTRATE 25 MG TABLET PO SCH ×2 (08:58→21:00)
[2022-10-16] MEDS: BALSAM PERU/CASTOR OIL 56.7 GM OINT...G. TP SCH (08:59)
[2022-10-16] MEDS: FLUCONAZOLE 200 mg/ NS 100 ML IV SCH (11:13)
[2022-10-16 11:33] VITALS: BP_SYST 145
[2022-10-16] MEDS: HEPARIN 25,000 UNITS in 250 ML PREMIX IV PRN (11:42)
[2022-10-16] MEDS: IPRATROPIUM/ALBUTEROL SULFATE 3 ML AMPUL.NEB (DUONEB) INH PRN ×2 (13:42→20:02)
[2022-10-16 15:25] VITALS: BP_SYST 115
[2022-10-16] MEDS ORDERED: [UNRECOGNIZED DRUG - OTHER] IV SCH ×9 (21:00)
[2022-10-16] MEDS ORDERED: TPN CENTRAL IV SCH ×9 (21:00)
[2022-10-16] MEDS ORDERED: POTASSIUM CHLORIDE IV SCH ×9 (21:00)
[2022-10-16] MEDS ORDERED: SODIUM CHLORIDE IV SCH ×9 (21:00)
[2022-10-17 00:16] VITALS: BP_SYST 120
[2022-10-17] MEDS: PANTOPRAZOLE SODIUM 40 MG/VIAL (PROTONIX) IVP SCH ×3 (02:58→21:15)
[2022-10-17] MEDS: CEFEPIME 2 GM in D5W 100 ML IV SCH ×2 (03:00→12:28)
[2022-10-17] MEDS: FAT EMULSIONS 250 ML IV SCH ×2 (04:11→21:15)
[2022-10-17] MEDS: ERYTHROMYCIN BASE 0.5% EYE OINT...G. LEFT EYE SCH ×3 (04:16→21:43)
[2022-10-17 07:59] LABS: BASOPHILS % (AUTO) 0.3 % (0.0-2.0); EOSINOPHILS # (AUTO) 0.1 K/uL (0.0-0.4); EOSINOPHILS % (AUTO) 0.8 % (0.0-4.0); HEMATOCRIT 33.3 % (36-54); HEMOGLOBIN 10.9 g/dL (14.0-18.0); LYMPHOCYTES # (AUTO) 0.9 K/uL (1.0-5.5); LYMPHOCYTES % (AUTO) 7.2 % (20.5-51.5); MEAN CORPUSCULAR HEMOGLOBIN 33 pg (27-31); MEAN CORPUSCULAR HGB CONC 33 % (32-36); MEAN CORPUSCULAR VOLUME 100 fL (79.0-98.0); MONOCYTES # (AUTO) 1.8 K/uL (0.0-1.0); MONOCYTES % (AUTO) 13.3 % (1.7-9.3); NEUTROPHILS # (AUTO) 10.3 K/uL (1.8-7.7); PLATELET COUNT (AUTO) 333 K/uL (130-430); RED BLOOD CELL COUNT(AUTO) 3.34 MIL/uL (4.2-6.2); RED CELL DISTRIBUTION WIDTH 19.8 % (9.0-15.0); WHITE BLOOD COUNT (AUTO) 13.1 K/uL (4.8-10.8)
[2022-10-17 08:00] VITALS: BP_SYST 119
[2022-10-17] MEDS: IPRATROPIUM/ALBUTEROL SULFATE 3 ML AMPUL.NEB (DUONEB) INH PRN ×3 (08:17→21:21)
[2022-10-17 08:29] LABS: ALANINE AMINOTRANSFERASE 66 U/L (12-78); ALBUMIN 1.7 g/dL (3.4-4.8); ANION GAP 5 (5-15); ASPARTATE AMINOTRANSFERASE 72 U/L (10-37); CALCIUM 8.5 mg/dL (8.4-11.0); CHLORIDE 95 mmol/L (98-107); CREATININE 0.61 mg/dL (0.55-1.30); GLUCOSE 184 mg/dL (70-99); PHOSPHORUS 3.2 mg/dL (2.7-4.5); TOTAL BILIRUBIN 5.5 mg/dL (0.0-1.0); UREA NITROGEN, BLOOD 26 mg/dL (8-21)
[2022-10-17] MEDS: METOPROLOL TARTRATE 25 MG TABLET PO SCH ×3 (09:49→21:14)
[2022-10-17] MEDS: BALSAM PERU/CASTOR OIL 56.7 GM OINT...G. TP SCH (09:49)
[2022-10-17 11:25] VITALS: BP_SYST 107
[2022-10-17] MEDS: FLUCONAZOLE 200 mg/ NS 100 ML IV SCH (11:51)
[2022-10-17] MEDS ORDERED: traMADol HCL HCL 50 MG TABLET (ULTRAM) PO PRN (13:00)
[2022-10-17] MEDS: KETOROLAC TROMETHAMINE 15 MG VIAL IVP PRN (13:39)
[2022-10-17 15:04] LABS: NEUTROPHILS % (AUTO) 78.4 % (40.0-70.0)
[2022-10-17 15:36] VITALS: BP_SYST 93
[2022-10-17 20:00] VITALS: BP_SYST 112
[2022-10-17] MEDS ORDERED: SODIUM CHLORIDE IV SCH ×9 (21:00)
[2022-10-17] MEDS ORDERED: [UNRECOGNIZED DRUG - OTHER] IV SCH ×9 (21:00)
[2022-10-17] MEDS ORDERED: POTASSIUM CHLORIDE IV SCH ×9 (21:00)
[2022-10-17] MEDS ORDERED: TPN CENTRAL IV SCH ×9 (21:00)
[2022-10-17] MEDS: HEPARIN 25,000 UNITS in 250 ML PREMIX IV PRN (21:19)
[2022-10-18] VITALS (9 sets, daily range): BP systolic 74–120
[2022-10-18 06:54] LABS: BASOPHILS # (AUTO) 0.1 K/uL (0.0-0.2); BASOPHILS % (AUTO) 0.9 % (0.0-2.0); EOSINOPHILS # (AUTO) 0.2 K/uL (0.0-0.4); EOSINOPHILS % (AUTO) 1.4 % (0.0-4.0); HEMATOCRIT 30.9 % (36-54); HEMOGLOBIN 10.1 g/dL (14.0-18.0); LYMPHOCYTES % (AUTO) 9.2 % (20.5-51.5); MEAN CORPUSCULAR HEMOGLOBIN 33 pg (27-31); MEAN CORPUSCULAR HGB CONC 33 % (32-36); MEAN CORPUSCULAR VOLUME 101 fL (79.0-98.0); MONOCYTES # (AUTO) 1.9 K/uL (0.0-1.0); MONOCYTES % (AUTO) 16.8 % (1.7-9.3); NEUTROPHILS # (AUTO) 8.1 K/uL (1.8-7.7); NEUTROPHILS % (AUTO) 71.7 % (40.0-70.0); PLATELET COUNT (AUTO) 278 K/uL (130-430); RED BLOOD CELL COUNT(AUTO) 3.07 MIL/uL (4.2-6.2); RED CELL DISTRIBUTION WIDTH 19.3 % (9.0-15.0); WHITE BLOOD COUNT (AUTO) 11.3 K/uL (4.8-10.8)
[2022-10-18 07:55] LABS: ALANINE AMINOTRANSFERASE 50 U/L (12-78); ALBUMIN 1.7 g/dL (3.4-4.8); ANION GAP 4 (5-15); ASPARTATE AMINOTRANSFERASE 49 U/L (10-37); CALCIUM 8.6 mg/dL (8.4-11.0); CHLORIDE 98 mmol/L (98-107); GLUCOSE 115 mg/dL (70-99); PHOSPHORUS 3.4 mg/dL (2.7-4.5); TOTAL BILIRUBIN 2.6 mg/dL (0.0-1.0); UREA NITROGEN, BLOOD 30 mg/dL (8-21)
[2022-10-18] MEDS: PANTOPRAZOLE SODIUM 40 MG/VIAL (PROTONIX) IVP SCH ×2 (09:00→22:03)
[2022-10-18] MEDS: BALSAM PERU/CASTOR OIL 56.7 GM OINT...G. TP SCH (09:00)
[2022-10-18] MEDS: METOPROLOL TARTRATE 25 MG TABLET PO SCH ×2 (09:00→21:00)
[2022-10-18] MEDS: IPRATROPIUM/ALBUTEROL SULFATE 3 ML AMPUL.NEB (DUONEB) INH PRN ×2 (09:12→15:48)
[2022-10-18] MEDS: CEFEPIME 2 GM in D5W 100 ML IV SCH ×3 (12:00)
[2022-10-18] MEDS: ERYTHROMYCIN BASE 0.5% EYE OINT...G. LEFT EYE SCH ×2 (12:10→22:03)
[2022-10-18] MEDS: FLUCONAZOLE 200 mg/ NS 100 ML IV SCH (12:11)
[2022-10-18] MEDS: KETOROLAC TROMETHAMINE 15 MG VIAL IVP PRN (17:00)
[2022-10-18] MEDS ORDERED: PROPOFOL DRIP 100 ML IV ONE (18:49)
[2022-10-18] MEDS ORDERED: NOREPINEPHRINE 4 MG/4 ML VIAL IV ONE (18:49)
[2022-10-18] MEDS ORDERED: TPN CENTRAL IV SCH ×9 (21:00)
[2022-10-18] MEDS ORDERED: SODIUM CHLORIDE IV SCH ×9 (21:00)
[2022-10-18] MEDS ORDERED: [UNRECOGNIZED DRUG - OTHER] IV SCH ×9 (21:00)
[2022-10-18] MEDS ORDERED: POTASSIUM CHLORIDE IV SCH ×9 (21:00)
[2022-10-18] MEDS: FAT EMULSIONS 250 ML IV SCH (21:56)
[2022-10-19] VITALS (25 sets, daily range): BP systolic 88–123
[2022-10-19] MEDS ORDERED: EPINEPHrine JECT 0.1 MG/ML SYR ONE
[2022-10-19] MEDS ORDERED: ROCURONIUM BROMIDE 10 MG/ML (ZEMURON) ONE
[2022-10-19] MEDS ORDERED: ETOMIDATE 20 MG/ 10 ML VIAL (AMIDATE) ONE
[2022-10-19] MEDS ORDERED: NOREPINEPHRINE 4 MG/4 ML VIAL IV ONE (02:36)
[2022-10-19 07:06] LABS: BASOPHILS % (AUTO) 0.4 % (0.0-2.0); EOSINOPHILS # (AUTO) 0.1 K/uL (0.0-0.4); EOSINOPHILS % (AUTO) 1.1 % (0.0-4.0); HEMATOCRIT 33.4 % (36-54); HEMOGLOBIN 11.1 g/dL (14.0-18.0); LYMPHOCYTES # (AUTO) 1.1 K/uL (1.0-5.5); LYMPHOCYTES % (AUTO) 8.1 % (20.5-51.5); MEAN CORPUSCULAR HEMOGLOBIN 34 pg (27-31); MEAN CORPUSCULAR HGB CONC 33 % (32-36); MEAN CORPUSCULAR VOLUME 102 fL (79.0-98.0); MONOCYTES # (AUTO) 2.5 K/uL (0.0-1.0); MONOCYTES % (AUTO) 18.6 % (1.7-9.3); NEUTROPHILS # (AUTO) 9.5 K/uL (1.8-7.7); NEUTROPHILS % (AUTO) 71.8 % (40.0-70.0); PLATELET COUNT (AUTO) 265 K/uL (130-430); RED BLOOD CELL COUNT(AUTO) 3.28 MIL/uL (4.2-6.2); WHITE BLOOD COUNT (AUTO) 13.2 K/uL (4.8-10.8)
[2022-10-19 07:44] LABS: ALANINE AMINOTRANSFERASE 85 U/L (12-78); ALBUMIN 1.7 g/dL (3.4-4.8); ANION GAP 5 (5-15); ASPARTATE AMINOTRANSFERASE 100 U/L (10-37); CALCIUM 8.7 mg/dL (8.4-11.0); CHLORIDE 97 mmol/L (98-107); CREATININE 0.64 mg/dL (0.55-1.30); GLUCOSE 116 mg/dL (70-99); PHOSPHORUS 4.6 mg/dL (2.7-4.5); TOTAL BILIRUBIN 5.6 mg/dL (0.0-1.0); UREA NITROGEN, BLOOD 34 mg/dL (8-21)
[2022-10-19] MEDS: METOPROLOL TARTRATE 25 MG TABLET PO SCH ×2 (08:41→20:55)
[2022-10-19] MEDS: ERYTHROMYCIN BASE 0.5% EYE OINT...G. LEFT EYE SCH ×2 (08:42→20:54)
[2022-10-19] MEDS: BALSAM PERU/CASTOR OIL 56.7 GM OINT...G. TP SCH (08:42)
[2022-10-19] MEDS: PANTOPRAZOLE SODIUM 40 MG/VIAL (PROTONIX) IVP SCH ×2 (08:48→20:54)
[2022-10-19] MEDS: PROPOFOL DRIP 100 ML IV PRN (13:15)
[2022-10-19] MEDS: MEROPENEM 1 GM in NS 100 ML IV SCH ×2 (13:39→20:55)
[2022-10-19] MEDS: NOREPINEPHRINE BITARTRATE 4 MG in NS 246 ML IV PRN (15:06)
[2022-10-19] MEDS: FAT EMULSIONS 250 ML IV SCH (20:54)
[2022-10-19] MEDS ORDERED: SODIUM CHLORIDE IV SCH ×9 (21:00)
[2022-10-19] MEDS ORDERED: TPN CENTRAL IV SCH ×9 (21:00)
[2022-10-19] MEDS ORDERED: [UNRECOGNIZED DRUG - OTHER] IV SCH ×9 (21:00)
[2022-10-19] MEDS ORDERED: NA PHOS IV SCH ×9 (21:00)
[2022-10-20] VITALS (24 sets, daily range): BP systolic 78–138
[2022-10-20] MEDS ORDERED: NOREPINEPHRINE 4 MG/4 ML VIAL IV ONE (02:21)
[2022-10-20] MEDS: MEROPENEM 1 GM in NS 100 ML IV SCH ×3 (05:27→21:09)
[2022-10-20 06:14] LABS: BASOPHILS # (AUTO) 0.1 K/uL (0.0-0.2); BASOPHILS % (AUTO) 0.4 % (0.0-2.0); EOSINOPHILS # (AUTO) 0.1 K/uL (0.0-0.4); EOSINOPHILS % (AUTO) 0.3 % (0.0-4.0); HEMATOCRIT 30.3 % (36-54); LYMPHOCYTES # (AUTO) 1.2 K/uL (1.0-5.5); LYMPHOCYTES % (AUTO) 5.3 % (20.5-51.5); MEAN CORPUSCULAR HEMOGLOBIN 33 pg (27-31); MEAN CORPUSCULAR HGB CONC 33 % (32-36); MEAN CORPUSCULAR VOLUME 101 fL (79.0-98.0); MONOCYTES # (AUTO) 3.4 K/uL (0.0-1.0); MONOCYTES % (AUTO) 15.4 % (1.7-9.3); NEUTROPHILS # (AUTO) 17.2 K/uL (1.8-7.7); PLATELET COUNT (AUTO) 234 K/uL (130-430); RED BLOOD CELL COUNT(AUTO) 3.01 MIL/uL (4.2-6.2); RED CELL DISTRIBUTION WIDTH 18.6 % (9.0-15.0); WHITE BLOOD COUNT (AUTO) 21.9 K/uL (4.8-10.8)
[2022-10-20 07:10] LABS: ANION GAP 6 (5-15); CALCIUM 8.1 mg/dL (8.4-11.0); CHLORIDE 101 mmol/L (98-107); CREATININE 0.61 mg/dL (0.55-1.30); GLUCOSE 131 mg/dL (70-99); UREA NITROGEN, BLOOD 34 mg/dL (8-21)
[2022-10-20 07:18] LABS: ALANINE AMINOTRANSFERASE 459 U/L (12-78); ALBUMIN 1.5 g/dL (3.4-4.8); ASPARTATE AMINOTRANSFERASE 666 U/L (10-37)
[2022-10-20 07:19] LABS: TRIGLYCERIDES 73 mg/dL (30-150)
[2022-10-20] MEDS: PANTOPRAZOLE SODIUM 40 MG/VIAL (PROTONIX) IVP SCH ×2 (08:37→20:23)
[2022-10-20] MEDS: METOPROLOL TARTRATE 25 MG TABLET PO SCH ×2 (08:38→20:23)
[2022-10-20] MEDS: BALSAM PERU/CASTOR OIL 56.7 GM OINT...G. TP SCH (08:40)
[2022-10-20] MEDS: ERYTHROMYCIN BASE 0.5% EYE OINT...G. LEFT EYE SCH ×2 (08:40→20:23)
[2022-10-20] MEDS: NOREPINEPHRINE BITARTRATE 4 MG in NS 246 ML IV PRN (14:41)
[2022-10-20 15:37] LABS: NEUTROPHILS % (AUTO) 78.6 % (40.0-70.0)
[2022-10-20] MEDS: FAT EMULSIONS 250 ML IV SCH (20:25)
[2022-10-20] MEDS ORDERED: TPN CENTRAL IV SCH ×9 (21:00)
[2022-10-20] MEDS ORDERED: SODIUM CHLORIDE IV SCH ×9 (21:00)
[2022-10-20] MEDS ORDERED: NA PHOS IV SCH ×9 (21:00)
[2022-10-20] MEDS ORDERED: [UNRECOGNIZED DRUG - OTHER] IV SCH ×9 (21:00)
[2022-10-21] VITALS (35 sets, daily range): BP systolic 72–137
[2022-10-21] MEDS: MEROPENEM 1 GM in NS 100 ML IV SCH ×3 (05:12→21:10)
[2022-10-21 06:44] LABS: BASOPHILS # (AUTO) 0.1 K/uL (0.0-0.2); BASOPHILS % (AUTO) 0.5 % (0.0-2.0); EOSINOPHILS # (AUTO) 0.1 K/uL (0.0-0.4); EOSINOPHILS % (AUTO) 0.3 % (0.0-4.0); HEMATOCRIT 28.6 % (36-54); HEMOGLOBIN 9.5 g/dL (14.0-18.0); LYMPHOCYTES # (AUTO) 1.1 K/uL (1.0-5.5); LYMPHOCYTES % (AUTO) 5.7 % (20.5-51.5); MEAN CORPUSCULAR HEMOGLOBIN 34 pg (27-31); MEAN CORPUSCULAR HGB CONC 33 % (32-36); MEAN CORPUSCULAR VOLUME 101 fL (79.0-98.0); MONOCYTES # (AUTO) 2.4 K/uL (0.0-1.0); MONOCYTES % (AUTO) 13.1 % (1.7-9.3); NEUTROPHILS # (AUTO) 14.8 K/uL (1.8-7.7); NEUTROPHILS % (AUTO) 80.4 % (40.0-70.0); PLATELET COUNT (AUTO) 222 K/uL (130-430); RED BLOOD CELL COUNT(AUTO) 2.83 MIL/uL (4.2-6.2); RED CELL DISTRIBUTION WIDTH 19.2 % (9.0-15.0); WHITE BLOOD COUNT (AUTO) 18.5 K/uL (4.8-10.8)
[2022-10-21 07:25] LABS: ANION GAP 7 (5-15); CALCIUM 8.2 mg/dL (8.4-11.0); CHLORIDE 106 mmol/L (98-107); CREATININE 0.76 mg/dL (0.55-1.30); GLUCOSE 126 mg/dL (70-99); PHOSPHORUS 2.8 mg/dL (2.7-4.5); UREA NITROGEN, BLOOD 38 mg/dL (8-21)
[2022-10-21] MEDS: METOPROLOL TARTRATE 25 MG TABLET PO SCH ×2 (09:00→20:50)
[2022-10-21] MEDS: BALSAM PERU/CASTOR OIL 56.7 GM OINT...G. TP SCH (09:00)
[2022-10-21] MEDS: NOREPINEPHRINE BITARTRATE 4 MG in NS 246 ML IV PRN (10:44)
[2022-10-21] MEDS: PANTOPRAZOLE SODIUM 40 MG/VIAL (PROTONIX) IVP SCH (12:29)
[2022-10-21] MEDS: ERYTHROMYCIN BASE 0.5% EYE OINT...G. LEFT EYE SCH ×2 (12:33→20:52)
[2022-10-21] MEDS: KETOROLAC TROMETHAMINE 15 MG VIAL IVP PRN ×2 (15:54→19:14)
[2022-10-21] MEDS: FAT EMULSIONS 250 ML IV SCH (20:49)
[2022-10-21] MEDS ORDERED: SODIUM CHLORIDE IV SCH ×9 (21:00)
[2022-10-21] MEDS ORDERED: TPN CENTRAL IV SCH ×9 (21:00)
[2022-10-21] MEDS ORDERED: [UNRECOGNIZED DRUG - OTHER] IV SCH ×9 (21:00)
[2022-10-21] MEDS ORDERED: NA PHOS IV SCH ×9 (21:00)
[2022-10-22] VITALS (34 sets, daily range): BP systolic 84–136
[2022-10-22] MEDS: PROPOFOL DRIP 100 ML IV PRN ×2 (00:37→22:14)
[2022-10-22] MEDS: MEROPENEM 1 GM in NS 100 ML IV SCH ×3 (05:41→22:15)
[2022-10-22 06:38] LABS: BASOPHILS # (AUTO) 0.1 K/uL (0.0-0.2); BASOPHILS % (AUTO) 0.5 % (0.0-2.0); EOSINOPHILS # (AUTO) 0.1 K/uL (0.0-0.4); EOSINOPHILS % (AUTO) 0.9 % (0.0-4.0); HEMATOCRIT 32.3 % (36-54); HEMOGLOBIN 10.4 g/dL (14.0-18.0); LYMPHOCYTES # (AUTO) 0.9 K/uL (1.0-5.5); LYMPHOCYTES % (AUTO) 6.3 % (20.5-51.5); MEAN CORPUSCULAR HEMOGLOBIN 33 pg (27-31); MEAN CORPUSCULAR HGB CONC 32 % (32-36); MEAN CORPUSCULAR VOLUME 103 fL (79.0-98.0); MONOCYTES # (AUTO) 1.8 K/uL (0.0-1.0); MONOCYTES % (AUTO) 13.1 % (1.7-9.3); NEUTROPHILS % (AUTO) 79.2 % (40.0-70.0); PLATELET COUNT (AUTO) 207 K/uL (130-430); RED BLOOD CELL COUNT(AUTO) 3.15 MIL/uL (4.2-6.2); RED CELL DISTRIBUTION WIDTH 19.2 % (9.0-15.0); WHITE BLOOD COUNT (AUTO) 13.9 K/uL (4.8-10.8)
[2022-10-22 07:13] LABS: ANION GAP 10 (5-15); CALCIUM 8.6 mg/dL (8.4-11.0); CHLORIDE 104 mmol/L (98-107); CREATININE 0.67 mg/dL (0.55-1.30); GLUCOSE 109 mg/dL (70-99); PHOSPHORUS 3.4 mg/dL (2.7-4.5); UREA NITROGEN, BLOOD 47 mg/dL (8-21)
[2022-10-22] MEDS: METOPROLOL TARTRATE 25 MG TABLET PO SCH ×3 (08:35→20:37)
[2022-10-22] MEDS: PANTOPRAZOLE SODIUM 40 MG/VIAL (PROTONIX) IVP SCH ×2 (08:35→20:38)
[2022-10-22] MEDS: ERYTHROMYCIN BASE 0.5% EYE OINT...G. LEFT EYE SCH ×2 (08:36→20:43)
[2022-10-22] MEDS: BALSAM PERU/CASTOR OIL 56.7 GM OINT...G. TP SCH (08:36)
[2022-10-22 11:47] LABS: ALBUMIN 1.1 g/dL (3.4-4.8); BILIRUBIN,DIRECT 3.5 mg/dL (0.0-0.3); TOTAL BILIRUBIN 4.6 mg/dL (0.0-1.0)
[2022-10-22] MEDS ORDERED: LACTULOSE 20 GM/30 ML UDC PO ONE (14:15)
[2022-10-22] MEDS: HEPARIN 25,000 UNITS in 250 ML PREMIX IV PRN (15:55)
[2022-10-22] MEDS: FAT EMULSIONS 250 ML IV SCH ×2 (20:53→20:56)
[2022-10-22] MEDS ORDERED: SODIUM CHLORIDE IV SCH ×9 (21:00)
[2022-10-22] MEDS ORDERED: [UNRECOGNIZED DRUG - OTHER] IV SCH ×9 (21:00)
[2022-10-22] MEDS ORDERED: NA PHOS IV SCH ×9 (21:00)
[2022-10-22] MEDS ORDERED: TPN CENTRAL IV SCH ×9 (21:00)
[2022-10-22] MEDS: NOREPINEPHRINE BITARTRATE 4 MG in NS 246 ML IV PRN (22:55)
[2022-10-23] VITALS (31 sets, daily range): BP systolic 90–152
[2022-10-23] MEDS: NOREPINEPHRINE BITARTRATE 4 MG in NS 246 ML IV PRN ×3 (02:05→22:15)
[2022-10-23] MEDS: MEROPENEM 1 GM in NS 100 ML IV SCH ×3 (05:17→22:09)
[2022-10-23 08:23] LABS: ALANINE AMINOTRANSFERASE 233 U/L (12-78); ALBUMIN 1.2 g/dL (3.4-4.8); ANION GAP 6 (5-15); ASPARTATE AMINOTRANSFERASE 170 U/L (10-37); CALCIUM 8.8 mg/dL (8.4-11.0); CHLORIDE 108 mmol/L (98-107); CREATININE 0.76 mg/dL (0.55-1.30); GLUCOSE 107 mg/dL (70-99); PHOSPHORUS 3.6 mg/dL (2.7-4.5); TOTAL BILIRUBIN 5.2 mg/dL (0.0-1.0); UREA NITROGEN, BLOOD 50 mg/dL (8-21)
[2022-10-23 08:54] LABS: BASOPHILS # (AUTO) 0.1 K/uL (0.0-0.2); BASOPHILS % (AUTO) 0.7 % (0.0-2.0); EOSINOPHILS % (AUTO) 0.3 % (0.0-4.0); HEMATOCRIT 32.8 % (36-54); HEMOGLOBIN 11.2 g/dL (14.0-18.0); LYMPHOCYTES # (AUTO) 0.8 K/uL (1.0-5.5); LYMPHOCYTES % (AUTO) 6.1 % (20.5-51.5); MEAN CORPUSCULAR HEMOGLOBIN 35 pg (27-31); MEAN CORPUSCULAR HGB CONC 34 % (32-36); MEAN CORPUSCULAR VOLUME 103 fL (79.0-98.0); MONOCYTES # (AUTO) 1.7 K/uL (0.0-1.0); MONOCYTES % (AUTO) 12.9 % (1.7-9.3); NEUTROPHILS # (AUTO) 10.8 K/uL (1.8-7.7); PLATELET COUNT (AUTO) 201 K/uL (130-430); RED BLOOD CELL COUNT(AUTO) 3.19 MIL/uL (4.2-6.2); RED CELL DISTRIBUTION WIDTH 19.2 % (9.0-15.0); WHITE BLOOD COUNT (AUTO) 13.5 K/uL (4.8-10.8)
[2022-10-23] MEDS: METOPROLOL TARTRATE 25 MG TABLET PO SCH ×2 (09:43→20:49)
[2022-10-23] MEDS: LACTULOSE 20 GM/30 ML UDC PO SCH (09:43)
[2022-10-23] MEDS: BALSAM PERU/CASTOR OIL 56.7 GM OINT...G. TP SCH (09:44)
[2022-10-23] MEDS: ERYTHROMYCIN BASE 0.5% EYE OINT...G. LEFT EYE SCH ×2 (09:44→20:54)
[2022-10-23] MEDS: PANTOPRAZOLE SODIUM 40 MG/VIAL (PROTONIX) IVP SCH ×2 (10:01→20:49)
[2022-10-23] MEDS: PROPOFOL DRIP 100 ML IV PRN (11:02)
[2022-10-23] MEDS: HEPARIN 25,000 UNITS in 250 ML PREMIX IV PRN (20:52)
[2022-10-23] MEDS ORDERED: NA PHOS IV SCH ×10 (21:00)
[2022-10-23] MEDS ORDERED: [UNRECOGNIZED DRUG - OTHER] IV SCH ×10 (21:00)
[2022-10-23] MEDS ORDERED: TPN CENTRAL IV SCH ×10 (21:00)
[2022-10-23] MEDS ORDERED: SODIUM CHLORIDE IV SCH ×10 (21:00)
[2022-10-24] VITALS (30 sets, daily range): BP systolic 78–138
[2022-10-24] MEDS: PROPOFOL DRIP 100 ML IV PRN ×2 (00:37→14:46)
[2022-10-24] MEDS: MEROPENEM 1 GM in NS 100 ML IV SCH (05:18)
[2022-10-24 07:43] LABS: ALANINE AMINOTRANSFERASE 150 U/L (12-78); ANION GAP 7 (5-15); ASPARTATE AMINOTRANSFERASE 105 U/L (10-37); CALCIUM 8.1 mg/dL (8.4-11.0); CHLORIDE 111 mmol/L (98-107); GLUCOSE 132 mg/dL (70-99); PHOSPHORUS 3.5 mg/dL (2.7-4.5); TOTAL BILIRUBIN 3.9 mg/dL (0.0-1.0); UREA NITROGEN, BLOOD 49 mg/dL (8-21)
[2022-10-24] MEDS: METOPROLOL TARTRATE 25 MG TABLET PO SCH ×2 (08:11→20:37)
[2022-10-24] MEDS: PANTOPRAZOLE SODIUM 40 MG/VIAL (PROTONIX) IVP SCH ×2 (08:11→20:36)
[2022-10-24] MEDS: ERYTHROMYCIN BASE 0.5% EYE OINT...G. LEFT EYE SCH ×2 (08:14→21:22)
[2022-10-24] MEDS: BALSAM PERU/CASTOR OIL 56.7 GM OINT...G. TP SCH (08:14)
[2022-10-24] MEDS: LACTULOSE 20 GM/30 ML UDC PO SCH (08:15)
[2022-10-24] MEDS: PHENYLEPHRINE HCL 50 MG in NS 245 ML IV PRN (15:36)
[2022-10-24] MEDS: MAGNESIUM SULFATE 50 ML IV PRN (19:47)
[2022-10-24] MEDS: CEFEPIME 2 GM in D5W 100 ML IV SCH (20:36)
[2022-10-24] MEDS ORDERED: TPN CENTRAL IV SCH ×10 (21:00)
[2022-10-24] MEDS ORDERED: NA PHOS IV SCH ×10 (21:00)
[2022-10-24] MEDS ORDERED: SODIUM CHLORIDE IV SCH ×10 (21:00)
[2022-10-24] MEDS ORDERED: [UNRECOGNIZED DRUG - OTHER] IV SCH ×10 (21:00)
[2022-10-24] MEDS: ACETAMINOPHEN 325 MG TABLET PO PRN (21:22)
[2022-10-25] VITALS (33 sets, daily range): BP systolic 81–118
[2022-10-25] MEDS: HEPARIN 25,000 UNITS in 250 ML PREMIX IV PRN ×2 (00:20→22:56)
[2022-10-25] MEDS: PROPOFOL DRIP 100 ML IV PRN ×2 (03:22→16:11)
[2022-10-25 07:16] LABS: ALANINE AMINOTRANSFERASE 125 U/L (12-78); ALBUMIN 1.1 g/dL (3.4-4.8); ANION GAP 11 (5-15); ASPARTATE AMINOTRANSFERASE 101 U/L (10-37); CALCIUM 8.5 mg/dL (8.4-11.0); CHLORIDE 110 mmol/L (98-107); CREATININE 0.82 mg/dL (0.55-1.30); GLUCOSE 92 mg/dL (70-99); PHOSPHORUS 3.7 mg/dL (2.7-4.5); TOTAL BILIRUBIN 3.8 mg/dL (0.0-1.0); UREA NITROGEN, BLOOD 56 mg/dL (8-21)
[2022-10-25] MEDS: CEFEPIME 2 GM in D5W 100 ML IV SCH ×2 (09:47→21:07)
[2022-10-25] MEDS: PANTOPRAZOLE SODIUM 40 MG/VIAL (PROTONIX) IVP SCH ×2 (09:48→21:08)
[2022-10-25] MEDS: LACTULOSE 20 GM/30 ML UDC PO SCH (09:49)
[2022-10-25] MEDS: ERYTHROMYCIN BASE 0.5% EYE OINT...G. LEFT EYE SCH ×2 (09:52→21:50)
[2022-10-25] MEDS: METOPROLOL TARTRATE 25 MG TABLET PO SCH ×2 (09:52→21:09)
[2022-10-25] MEDS: BALSAM PERU/CASTOR OIL 56.7 GM OINT...G. TP SCH (09:55)
[2022-10-25] MEDS: PHENYLEPHRINE HCL 50 MG in NS 245 ML IV PRN ×2 (10:25→22:54)
[2022-10-25] MEDS ORDERED: [UNRECOGNIZED DRUG - OTHER] IV SCH ×20 (11:45→21:00)
[2022-10-25] MEDS ORDERED: TPN CENTRAL IV SCH ×20 (11:45→21:00)
[2022-10-25] MEDS ORDERED: NA PHOS IV SCH ×20 (11:45→21:00)
[2022-10-25] MEDS ORDERED: SODIUM CHLORIDE IV SCH ×20 (11:45→21:00)
[2022-10-26] VITALS (19 sets, daily range): BP systolic 67–119
[2022-10-26] MEDS: PROPOFOL DRIP 100 ML IV PRN (03:54)
[2022-10-26 06:49] LABS: HEMATOCRIT 34.6 % (36-54); HEMOGLOBIN 11.2 g/dL (14.0-18.0); MEAN CORPUSCULAR HEMOGLOBIN 33 pg (27-31); MEAN CORPUSCULAR HGB CONC 33 % (32-36); MEAN CORPUSCULAR VOLUME 101 fL (79.0-98.0); PLATELET COUNT (AUTO) 244 K/uL (130-430); RED BLOOD CELL COUNT(AUTO) 3.41 MIL/uL (4.2-6.2); RED CELL DISTRIBUTION WIDTH 18.9 % (9.0-15.0); WHITE BLOOD COUNT (AUTO) 14.6 K/uL (4.8-10.8)
[2022-10-26 07:06] LABS: ALANINE AMINOTRANSFERASE 196 U/L (12-78); ALBUMIN 1.1 g/dL (3.4-4.8); ANION GAP 10 (5-15); ASPARTATE AMINOTRANSFERASE 289 U/L (10-37); CALCIUM 8.3 mg/dL (8.4-11.0); CHLORIDE 108 mmol/L (98-107); CREATININE 0.77 mg/dL (0.55-1.30); GLUCOSE 100 mg/dL (70-99); PHOSPHORUS 4.6 mg/dL (2.7-4.5); TOTAL BILIRUBIN 3.7 mg/dL (0.0-1.0); TRIGLYCERIDES 132 mg/dL (30-150); UREA NITROGEN, BLOOD 61 mg/dL (8-21)
[2022-10-26] MEDS: PANTOPRAZOLE SODIUM 40 MG/VIAL (PROTONIX) IVP SCH (08:09)
[2022-10-26] MEDS: CEFEPIME 2 GM in D5W 100 ML IV SCH (08:09)
[2022-10-26] MEDS: ERYTHROMYCIN BASE 0.5% EYE OINT...G. LEFT EYE SCH (08:10)
[2022-10-26] MEDS: BALSAM PERU/CASTOR OIL 56.7 GM OINT...G. TP SCH (08:10)
[2022-10-26] MEDS: LACTULOSE 20 GM/30 ML UDC PO SCH (08:10)
[2022-10-26] MEDS: METOPROLOL TARTRATE 25 MG TABLET PO SCH (08:10)
[2022-10-26] MEDS: PHENYLEPHRINE HCL 50 MG in NS 245 ML IV PRN (08:13)
[2022-10-26 08:43] LABS: BAND % (MANUAL) 3 % (0-6); BASOPHILS % (MANUAL) 0 % (0-2); EOSINOPHILS % (MANUAL) 0 % (0-7); LYMPHOCYTES % (MANUAL) 17 % (20-46); METAMYELOCYTES % 2 % (0-0); MONOCYTES % (MANUAL) 4 % (0-11); MYELOCYTES % 2 % (0-0)
[2022-10-26] MEDS: FENTANYL CITRATE-0.9 % NACL/PF 100 ML IV PRN ×3 (10:40→12:31)
[2022-10-26] MEDS ORDERED: NA PHOS IV SCH ×10 (21:00)
[2022-10-26] MEDS ORDERED: SODIUM CHLORIDE IV SCH ×10 (21:00)
[2022-10-26] MEDS ORDERED: [UNRECOGNIZED DRUG - OTHER] IV SCH ×10 (21:00)
[2022-10-26] MEDS ORDERED: TPN CENTRAL IV SCH ×10 (21:00)
== END 2022-10-26 14:31 | DRG 870 ==
LOC: SED 15:37 → STU 19:54 → SIC 10-03 14:45 → STU 10-12 13:29 → SIC 10-18 18:50
PROVIDERS: ADMIT General Practice; ATTEND General Practice
PROC: 30233N1 Transfusion of Nonautologous Red Blood Cells into Peripheral Vein, Percutaneous Approach (ICD-10-PCS; 2022-10-03)
PROC: 30233K1 Transfusion of Nonautologous Frozen Plasma into Peripheral Vein, Percutaneous Approach (ICD-10-PCS; 2022-10-04)
PROC: 5A1955Z Respiratory Ventilation, Greater than 96 Consecutive Hours (ICD-10-PCS; principal; 2022-10-18)
PROC: 0BH17EZ Insertion of Endotracheal Airway into Trachea, Via Natural or Artificial Opening (ICD-10-PCS; 2022-10-18)
PROC: 5A12012 Performance of Cardiac Output, Single, Manual (ICD-10-PCS; 2022-10-18)
PROC: 05HY33Z Insertion of Infusion Device into Upper Vein, Percutaneous Approach (ICD-10-PCS; 2022-10-19)
PROC: B54MZZA Ultrasonography of Right Upper Extremity Veins, Guidance (ICD-10-PCS; 2022-10-19)
DX: A41.9 Sepsis, unspecified organism (principal); I26.99 Other pulmonary embolism without acute cor pulmonale; J69.0 Pneumonitis due to inhalation of food and vomit; J96.00 Acute respiratory failure, unspecified whether with hypoxia or hypercapnia; R65.21 Severe sepsis with septic shock; K65.9 Peritonitis, unspecified; C25.9 Malignant neoplasm of pancreas, unspecified; D84.9 Immunodeficiency, unspecified; E87.1 Hypo-osmolality and hyponatremia; L03.311 Cellulitis of abdominal wall; J44.0 Chronic obstructive pulmonary disease with (acute) lower respiratory infection; K92.2 Gastrointestinal hemorrhage, unspecified; G93.1 Anoxic brain damage, not elsewhere classified; E44.1 Mild protein-calorie malnutrition; T83.098A Other mechanical complication of other urinary catheter, initial encounter; Z20.822 Contact with and (suspected) exposure to COVID-19; I48.0 Paroxysmal atrial fibrillation; D64.9 Anemia, unspecified; K52.9 Noninfective gastroenteritis and colitis, unspecified; I46.9 Cardiac arrest, cause unspecified; Y83.8 Other surgical procedures as the cause of abnormal reaction of the patient, or of later complication, without mention of misadventure at the time of the procedure; I71.43 Infrarenal abdominal aortic aneurysm, without rupture; R53.81 Other malaise; Z92.21 Personal history of antineoplastic chemotherapy; D63.8 Anemia in other chronic diseases classified elsewhere; Z87.891 Personal history of nicotine dependence; Y92.89 Other specified places as the place of occurrence of the external cause; Z86.79 Personal history of other diseases of the circulatory system; Z86.711 Personal history of pulmonary embolism; Z86.16 Personal history of COVID-19; Z85.07 Personal history of malignant neoplasm of pancreas; Z68.20 Body mass index [BMI] 20.0-20.9, adult; Z79.82 Long term (current) use of aspirin; Z79.899 Other long term (current) drug therapy
CPT/HCPCS: 36415; 36600; 71045; 71275; 72191; 72192-TC; 74175; 76376; 80048; 80053; 80076; 81000; 82140; 82800-TC; 82803-TC; 82962; 83036; 83735; 83880; 84100; 84478; 84484; 85007; 85025; 85027; 85610-TC; 85730-TC; 86301; 86886; 86900; 86901; 86920; 87040; 87070-TC; 87075-TC; 87081; 87086; 87205-TC; 92950; 93005; 93306; 93970; 94002; 94003; 94640; 94760; 96360; 97110-GP; 97530-GP; 99285; A4421; A6209; C9113; G0378; J0171; J0610; J0692; J1450; J1644; J1650; J1815; J1885; J1940; J2060; J2185; J2354; J2370; J2543; J2704; J3010; J3475; J3480; J3490; J7030; J7040; J7042; J7050; J7060; J7120; J7131; P9021; P9059; Q0169; Q9967